=== PATIENT | female | born 1950 | race Asian ===

== ENCOUNTER → 2017-10-12 | Outpatient (CLI) | payer OTHER, BC | LOC: BMCIMAGING 14:54 | PROVIDERS: ATTEND Family Medicine | DX: Z12.31 Encounter for screening mammogram for malignant neoplasm of breast (principal); Z80.3 Family history of malignant neoplasm of breast | CPT/HCPCS: G0202 ==

== ENCOUNTER → 2018-10-15 | Outpatient (CLI) | payer OTHER, BC | LOC: BMCIMAGING 08:00 | PROVIDERS: ATTEND Family Medicine | DX: Z12.31 Encounter for screening mammogram for malignant neoplasm of breast (principal); Z80.3 Family history of malignant neoplasm of breast ==

== ENCOUNTER → 2018-10-25 | Outpatient (CLI) | payer OTHER, BC | LOC: BMCIMAGING 11:07 | PROVIDERS: ATTEND Family Medicine | DX: R92.8 Other abnormal and inconclusive findings on diagnostic imaging of breast (principal) ==